=== PATIENT | male | born 1975 | race Caucasian/White ===

== ENCOUNTER 2019-08-08 18:51 | Emergency (ER) | payer BC, SELFPAY ==
--- NOTE | 2019-08-08 19:01 | ED.WOUNDLAC ---
HPI - Wound/Laceration General Chief Complaint: Wound/Laceration Stated Complaint: cut finger Time Seen by Provider: 08/08/19 19:01 Source: patient and RN notes reviewed Mode of arrival: ambulatory Limitations: no limitations History of Present Illness Onset (ago): minute(s) (20) Extremity Location: Left: hand (5th finger) Place: home Patient tetanus UTD: No Context: accidental Associated symptoms: none Treatments prior to arrival: bandage Related Data Home Medications Medication Instructions Recorded Confirmed No Home Medications 08/08/19 08/08/19 Allergies Allergy/AdvReac Type Severity Reaction Status Date / Time No Known Allergies Allergy Verified 08/08/19 19:14 Review of Systems Review of Systems: All systems reviewed & are unremarkable except as noted in HPI and below PMFSH Past Medical History Medical History (Updated 08/08/19 @ 19:25 by Luis Newman MD) No active medical problems Surgical History Surgical History (Updated 08/08/19 @ 19:22 by Luis Newman MD) No history of previous surgery Social History Social History (Updated 08/08/19 @ 19:22 by Luis Newman MD) Smoking status: Former smoker Tobacco type: smokeless tobacco Alcohol intake: current Drinks per week: 2 Substance use: never Living arrangements: with family Exam Const: General: healthy appearing, no acute distress and alert Nutritional Appearance: well nourished Orientation/consciousness: patient oriented x3 HENMT: Head: normal to inspection Ears: external ears normal General nose exam: Normal external nose present Face and sinus: normal facial exam Mouth: Yes lip normal Eyes: Conjunctivae: conjunctivae normal Pupils: Equal, round and reactive pupils present EOM: EOMs intact bilaterally Neck: Neck: normal visual inspection Resp: Effort & Inspection: normal respiratory effort Auscultation: clear to auscultation bilaterally Cardio: Rate: regular rate Rhythm: regular rhythm GI: GI Palp: Yes Soft to palpation and No Tenderness to palpation present (GI) Auscultation: normal bowel sounds Back/Spine/Pelvis: Cervical Spine: cervical ROM normal Thoracic/Lumbar Spine: thoraco-lumbar ROM normal Skin: General skin exam: normal color Rashes: no rashes Wounds: wounds noted laceration left dorsal 5th finger Neuro: General: patient oriented x3, moves all extremities and no focal motor deficits Speech: normal speech Gait exam (Neuro): Normal gait present Extrem: General: normal to inspection Psych: Appearance: grossly normal and well kempt Mental Status: mental status grossly normal Affect: normal affect Attitude: cooperative Thought content: Yes Normal thought content present Course Vital Signs Vital signs: Vital Signs Temperature 36.8 C 08/08/19 19:15 Pulse Rate 77 08/08/19 19:15 Respiratory Rate 16 08/08/19 19:15 Blood Pressure 154/89 H 08/08/19 19:15 Pulse Oximetry 97 08/08/19 19:15 Temperature 36.8 C 08/08/19 19:15 Pulse Rate 77 08/08/19 19:15 Respiratory Rate 16 08/08/19 19:15 Blood Pressure 154/89 H 08/08/19 19:15 Pulse Oximetry 97 08/08/19 19:15 Procedures Laceration Laceration 1: Date: 08/08/19 Time: 19:10 Site: hand (5th finger dorasl over middle phalanx) Side (If applicable): left Description: linear Depth: simple, single layer Local Anesthetic: lidocaine 1% Amount of anesthesia used (mL): 3 Pre-repair: wound explored and irrigated ====== Skin Level ====== Skin layer closed with: nylon Size (cm): 4-0 Number of sutures: 7 Technique: running ====== Subcutaneous Layer ====== ====== Muscle Layer ====== ====== Tendon Layer ====== Discharge Plan Discharge Clinical Impression: Laceration Patient Disposition: Home, Self-Care Condition: Stable Instructions: Laceration (ED) Additional Instructions: use Tylenol
[2019-08-08] MEDS: TETANUS,DIPHTHERIA,AC PERTUSSIS ADULT 0.5 ML (ADACEL) (19:11)
[2019-08-08 19:15] VITALS: BP 154/89; PULSE 77; RESP 16; TEMP 36.8; O2SAT 97
[2019-08-08 19:35] VITALS: RESP 16
== END 2019-08-08 19:35 | disposition home or self-care (01) ==
PROVIDERS: Emergency Provider Emergency Medicine; PCP Internal Medicine
DX: S61.217A Laceration without foreign body of left little finger without damage to nail, initial encounter (principal); W45.8XXA Other foreign body or object entering through skin, initial encounter
CPT/HCPCS: 12001; 90471; 90715; 99282

== ENCOUNTER 2019-09-26 07:59 | Outpatient (CLI) | payer BC, SELFPAY ==
--- NOTE | ~2019-09-26 | CT_ITS ---
EXAMINATION: CT soft tissue neck w con DATE: 09/26/2019 08:37 INDICATION: Right neck mass. TECHNIQUE: Computed tomography (CT) of the neck was performed with 75 mL Omnipaque-350 intravenous co ntrast. Automated exposure control and iterative reconstruction technique were employed. The dose-shivani gth product was 568.85 mGy-cm. COMPARISON: Neck CT 08/30/2017 FINDINGS: There are no pathologically enlarged lymph nodes. There is no visible plaque in the proxima l internal carotid arteries. There is a punctate calcification in right palatine tonsil. There is mil d mucosal thickening in the maxillary sinuses. There is mild cervical spondylosis. IMPRESSION: 1. No abnormal mass or lymphadenopathy. Reviewed, dictated and finalized at location A.
== END 2019-09-26 08:00 | disposition home or self-care (01) ==
LOC: CHSIMG 08:01
PROVIDERS: PCP Internal Medicine; Visit Provider Internal Medicine
DX: J31.2 Chronic pharyngitis (principal); L04.0 Acute lymphadenitis of face, head and neck
CPT/HCPCS: 70491; Q9965

== ENCOUNTER 2021-04-15 11:37 | Outpatient (CLI) | payer BC, SELFPAY ==
--- NOTE | ~2021-04-15 | XR_ITS ---
EXAMINATION: XR_CERV2-3V_CR EXAM DATE: 04/15/2021 12:08 INDICATION: No known recent injury provided at this time. Pain of the cervical spine. TECHNIQUE: Cervical spine frontal, lateral, lateral swimmers, and open-mouth odontoid projections. There is no prior study for comparison. FINDINGS: There is mild to moderate disc disease at C5-6 and 6-7. The vertebral body and disc height s are otherwise well maintained. The vertebral bodies are aligned in the AP dimension. The odontoid p rocess is intact. The lateral masses of C1 line up with C2. Prevertebral soft tissue and pre-dens sp gisele are within normal limits. Evidence of mild cervical arthropathy. Lung apices clear. IMPRESSION: 1. Mild to moderate lower cervical disc disease. 2. Mild arthropathy. Reviewed, dictated and finalized at location A. COMMUNICATIONS TECHNICIAN
--- NOTE | ~2021-04-15 | XR_ITS ---
EXAMINATION: XR shoulder LT min 2V EXAM DATE: 04/15/2021 12:08 INDICATION: No known recent injury provided at this time. Pain of the left shoulder. TECHNIQUE: The following left shoulder projections obtained: frontal projection with internal rotatio n, frontal projection with external rotation, Grashey, and scapular Y view (4+ views). There is no p rior study for comparison. FINDINGS: No evidence of left shoulder rotator cuff calcific tendinosis. There is mild glenohumera l joint, mild acromioclavicular joint primary osteoarthritis. There are no acute fractures or disloca tions identified. There is no subcutaneous gas. The soft tissue is unremarkable. There are no rad iopaque foreign bodies. IMPRESSION: Mild left shoulder osteoarthritis. Reviewed, dictated and finalized at location A. YTICS SENIOR MANAGER
[2021-04-15 11:49] LABS: Basophils Absolute Auto 0.04 K/mm3 (0.00-0.10); Basophils Percent Auto 0.7 % (0.0-1.0); Eosinophils Absolute Auto 0.07 K/mm3 (0.02-0.50); Eosinophils Percent Auto 1.2 % (1.0-6.0); Hematocrit 46.1 % (40.0-54.0); Hemoglobin 15.4 g/dL (14.0-18.0); Immature Granulocyte Absolute 0.01 K/mm3 (0.00-0.00); Immature Granulocyte Percent A 0.2 % (0.0-0.0); Lymphocytes Absolute Auto 1.95 K/mm3 (1.10-4.50); Lymphocytes Percent Auto 32.2 % (18.0-42.0); Mean Corpuscular HGB Conc 33.4 g/dL (32.0-36.0); Mean Corpuscular Hemoglobin 30.5 pg (27.0-31.0); Mean Corpuscular Volume 91.3 fL (78.0-102.0); Monocytes Absolute Auto 0.46 K/mm3 (0.10-0.90); Monocytes Percent Auto 7.6 % (2.0-11.0); Neutrophils Absolute Auto 3.5 K/mm3 (1.7-7.2); Neutrophils Percent Auto 58.1 % (50.0-70.0); Platelet Count Result 234 K/mm3 (150-420); Red Blood Count 5.05 M/mm3 (4.70-6.10); Red Cell Distribution Width 12.4 % (11.6-14.4); White Blood Count 6.1 K/mm3 (4.8-10.8)
[2021-04-15 11:55] LABS: Add Urine Microscopic? YES; Appearance Urine Clear (Clear); Bilirubin Urine Negative (Negative); Blood Urine Negative (Negative); Color Urine Yellow (Yellow); Glucose Urine UA Negative (Negative); Ketones Urine Negative (Negative); Leukocyte Esterase Ur Negative (Negative); Nitrate Urine Negative (Negative); Protein Urine Trace (Negative); Specific Grav Ur 1.025 (1.010-1.020); Urobilinogen Urine 0.2 mg/dL (0.2-1.0)
[2021-04-15 11:58] LABS: RBC Urine None seen /hpf (0-2); WBC Urine None seen /hpf (0-3)
[2021-04-15 11:59] LABS: Bacteria Urine Trace /hpf; Mucus Urine Moderate /lpf
[2021-04-15 12:34] LABS: Alanine Aminotransferase 49 U/L (16-63); Alkaline Phosphatase 104 U/L (46-116); Anion Gap 8 mmol/L (8-16); Aspartate Amino Transferase 18 U/L (15-37); Bilirubin,Total 0.7 mg/dL (0.00-1.00); Blood Urea Nitrogen 15 mg/dL (7-18); Carbon Dioxide 28 mmol/L (21-32); Chloride 105 mmol/L (98-108); Cholesterol 143 mg/dL (0-200); Estimated Glomerular Filt Rate > 60; Glucose 98 mg/dL (70-99); HDL Direct 38 mg/dL (40-60); LDL Cholesterol Calculated 74 mg/dL (<130); Osmolality Calculated 292 mOsm/kg (285-295); Potassium 4.2 mmol/L (3.5-5.1); Sodium 141 mmol/L (136-145); Total Protein 7.3 g/dL (6.4-8.2); Triglycerides 155 mg/dL (0-150)
== END 2021-04-15 11:38 | disposition home or self-care (01) ==
LOC: CHSLAB 11:40
PROVIDERS: PCP Internal Medicine; Visit Provider Internal Medicine
DX: Z00.00 Encounter for general adult medical examination without abnormal findings (principal); M54.2 Cervicalgia; M25.512 Pain in left shoulder
CPT/HCPCS: 36415; 72040; 73030; 80053; 80061; 81001; 85025

== ENCOUNTER 2021-04-22 16:54 | Outpatient (RCR) | payer BC, SELFPAY ==
--- NOTE | 2021-04-25 06:49 | PTOPEVAL ---
Thank you for referring Trent Valdes Ems to [facility] [place] The patient is scheduled to be seen for therapy? ____x/week for ___ weeks. Please review, sign, date and return this plan of care GANESH. I agree with and certify that the following plan of care is medically necessary. Referring Physician Date Admitting Provider: Attending Provider: Layton Oliva MD Referring Provider: *PT Outpatient Evaluation Start: 04/22/21 16:19 Freq: Status: Active Protocol: Document 04/22/21 16:50 ACR (Rec: 04/22/21 17:42 ACR [id number]) Therapy Assessment Status Assessment Status Assessment Status Evaluation Evaluation Information Problem Diagnosis 04/04/21 Subjective Information Patient states that he has Query Text:As Reported By Patient/ been noticing off and on pain Family in the shoulder and neck along with the chest. He states the pain is really dull and uncomfortable. He states that he is able to do everything, but he has a lot of stiffness in the morning where it is painful. Some week he has the pain and others it doesn't feel well. 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 He states that when he is stiff it is sometimes difficult to take a deep breath. Patient states that his goal for therapy is to decrease the amount of times the pain occurs. Prior Level of Function Activity Level (Last 3 Months) Occupation fork lift truck operator Hand Dominance Right Activity of Daily Living Ability Independent Indoor/Home Mobility Independent Community Mobility Independent Stairs Ability Independent Functional Cognition (Planning, Shopping Independent , Taking Medications) Cooking Yes Cleaning Yes Laundry Yes Shopping Yes Driving Yes Pain Assessment Timing of Pain Assessment Timing of Pain Assessment Assessment Pain Scale Pain Scale Used Numeric (1 - 10) Self Report Pain Assess
--- NOTE | 2021-05-24 17:22 | PTOPEVAL ---
Thank you for referring Trent Valdes Ems to [facility].? The patient is scheduled to be seen for therapy? ____x/week for ___ weeks. Please review, sign, date and return this plan of care GANESH. I agree with and certify that the following plan of care is medically necessary. Referring Physician Date Admitting Provider: Attending Provider: Layton Oliva MD Referring Provider: *PT Outpatient Evaluation Start: 04/22/21 16:19 Freq: Status: Active Protocol: Document 05/24/21 16:50 ACR (Rec: 05/24/21 17:22 ACR [id number]) Therapy Assessment Status Assessment Status Assessment Status Discharge Evaluation Information Problem Diagnosis L shoulder and neck pain Onset 04/04/21 Subjective Information Patient states that since Query Text:As Reported By Patient/ beginning therapy he has been Family feeling like it has helped him a little bit. Patient states that he still has the discomfort, but not as often. Patient states that taking deep breath he still has pain behind the shoulder blade. He states he is doing a lot better. Pain Assessment Timing of Pain Assessment Timing of Pain Assessment Assessment Self Report Self Report Pain Level 0 Pain Score Pain Score 0: Self Report Cervical and Lumbar ROM Cervical ROM Cervical Flexion (0-60) 58 Query Text:Active in Degrees Cervical Extension (0-70) 55 Query Text:Active in Degrees Cervical Rotation Right (0-90) 72 Query Text:Active in Degrees Cervical Rotation Left (0-90) 80 Query Text:Active in Degrees Upper Extremity Range of Motion Scapular/ Shoulder Range of Motion Right Shoulder Flexion - Active 174 Shoulder Abduction - Active 180 Left Shoulder Flexion - Active 168 Shoulder Abduction - Active 179 Upper Extremity Muscle Strength Testing Scapular/Shoulder Right Shoulder Elevation - Upper Trapezius 5 Normal Scapular Retraction - Rhomboid 5 Normal Scapular Retraction - Middle Trapezius 5 Normal Scapular Retraction - Lower Trapezius 5 Normal Shoulder Flexion Strength 5 Normal Shoulder Abduction Strength 5 Normal Shoulder Medial Rotation Strength 5 Normal Shoulder Lateral Rotation Strength 5 Normal Left Shoulder Elevation - Upper Trapezius 5 Normal Scapular Retraction - Rhomboid 5 Normal Scapular Retraction - Middle Trapezius 5 Normal Scapular Retraction - Lower Trapezius 5 Normal Shoulder Flexion Strength 5 Normal Shoulder Abduction Strength 5 Normal Shoulder Medial Rotation Strength
== END 2021-05-24 14:02 | disposition home or self-care (01) ==
LOC: CHSPT 16:54
PROVIDERS: PCP Internal Medicine; Visit Provider Internal Medicine
DX: M25.512 Pain in left shoulder (principal); M54.2 Cervicalgia
CPT/HCPCS: 97110; 97140; 97161

== ENCOUNTER 2022-04-24 14:36 | Outpatient (RCR) | payer OTHER, SELFPAY ==
--- NOTE | 2022-04-27 08:57 | BUOTOPEVAL ---
Assessment and note entered by Mary [place] OT Evaluation Information Assessment Status Evaluation Diagnosis R elbow pain Onset 04/03/2022 Subjective Information The patient reports numbness and tingling in distal arm and hand when sleeping but reports that that has happened before injury. The patient reports a shot of cortizone in posterior elbow and has been experiencing decreased pain in that area for now. Reported Pain Level Pain Score 0: Self Report Pain Score 2: Self Report Assessment OT Clinical Summary The patient is a 47 year old male who was referred to outpatient OT due to R elbow pain. 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 The patient previously demonstrated no pain during activity, WFL AROM and WFL strength of elbow and hand in R UE. The patient now demonstrates 5/10 pain with activity, diminished elbow AROM and strength, fair minus human resource professional/pinch strength which affect the patient's ability to perform self care tasks and work activities needed to return to prior level of independence. Plan of Care Interventions Therapeutic Exercise,Manual Therapy,Neuro Re- education,Therapeutic Activities,Hot Pack/Cold Pack,Electrical Stimulation,Self-Care/Home Management,Ultrasound OT Services Indicated Yes Treatment Frequency and 3x/week for 4 weeks. Duration These treatments will address the objective and functional deficits as defined above. The patient will be advanced safely and appropriately in order for the patient to progress towards his/her prior level of function. Additional exercises will be introduced and as well as a comprehensive home exercise program upon discharge, if needed, ?to ensure carryover of functional gains achieved in the clinic. This treatment plan has been reviewed and agreement upon by the patient.
--- NOTE | 2022-05-15 15:51 | OTOPPROG ---
Assessment and note entered by Mary [place] OT Evaluation Information Assessment Status Progress Assessment OT Clinical Summary The patient demonstrates signifcant progress with R UE elbow pain, AROM, strength, and machinery erector/pinch strength which affect the patient's ability to perform self care and work tasks with increased independence. The patient continues to demonstrate sharp pain in posterior elbow and forearm during pronation tasks which affect his ability to lift heavy objects at work. The patient demonstrates popping/grinding in elbow and wrist during supination/pronation motion which affect progress with strength of R UE. Patient demonstrates 4 to 4 -/5 muscle strength of R elbow flexion/extension with minimal pain at this time. The patient continues to demonstrate progress toward goals with reasonable expectation for improvement, the patient to continue with OT 2x/week for 10 visits to improve pain symptoms and increase strength. Plan of Care Interventions Therapeutic Exercise,Manual Therapy,Therapeutic Activities,Hot Pack/Cold Pack,Electrical Stimulation,Ultrasound OT Services Indicated Yes Treatment Frequency and 2x/week for 10 visits. Duration These treatments will address the objective and functional deficits as defined above. The patient will be advanced safely and appropriately in order for the patient to progress towards his/her prior level of function. Additional exercises will be introduced and as well as a comprehensive home exercise program upon discharge, if needed, ?to ensure carryover of functional gains achieved in the clinic. This treatment plan has been reviewed and agreement upon by the patient.
== END 2022-05-19 19:00 | disposition home or self-care (01) ==
LOC: CHSOT 14:36
PROVIDERS: Visit Provider Orthopaedic Surgery Hand Surgery
DX: M25.521 Pain in right elbow (principal)
CPT/HCPCS: 97014; 97110; 97140; 97165; 97530; G0283

== ENCOUNTER 2022-05-27 07:23 | Outpatient (CLI) | payer OTHER, SELFPAY | END 2022-05-27 07:24 | disposition home or self-care (01) | PROVIDERS: PCP Internal Medicine; Visit Provider Orthopaedic Surgery Hand Surgery | DX: M25.521 Pain in right elbow (principal) | CPT/HCPCS: 99199 ==

== ENCOUNTER 2022-07-05 18:23 | Outpatient (CLI) | payer BC, SELFPAY ==
--- NOTE | ~2022-07-05 | XR_ITS ---
EXAMINATION: XR chest 2V Exam Date/Time: 07/05/2022 18:38 CDT HISTORY: COUGH, SOB, WHEEZING 1.5 WEEKS. Comparison: 03/12/2018. RESULT: Lines, tubes, and devices: None. Lungs and pleura: Mild diffuse reticulonodular opacities and cuffing. Cardiomediastinal silhouette: Stable. Other: No acute osseous or upper abdominal finding. IMPRESSION: Pulmonary opacities may represent mild bronchiolitis, as can be seen with atypical infection, asthma, aspiration, and small airways disease. Reviewed, dictated and finalized at location K. IMPRESSION: Pulmonary opacities may represent mild bronchiolitis, as can be seen with atypi jae infection, asthma, aspiration, and small airways disease.
== END 2022-07-05 18:24 | disposition home or self-care (01) ==
LOC: CHSIMG 18:26
PROVIDERS: PCP Internal Medicine; Visit Provider Internal Medicine
DX: R05.9 Cough, unspecified (principal); R91.8 Other nonspecific abnormal finding of lung field
CPT/HCPCS: 71046

== ENCOUNTER 2023-01-10 00:27 | Day surgery (SDC) | payer BC, SELFPAY ==
[2022-12-28 13:12] VITALS: BMI 34.7
--- NOTE | 2023-01-09 17:02 | PM.HPGS ---
History of Present Illness History of Present Illness Consent: Risks, benefits, and alternatives have been discussed and questions answered. Patient agrees to proceed with procedure. Chief complaint: neoplasm screening Narrative: Trent Florence is a 47 year old male who is referred for colon cancer screening. Review of Systems Review of Systems: All systems reviewed & are unremarkable except as noted in HPI and below PMFSH Past Medical History Medical History No active medical problems Surgical History Surgical History No history of previous surgery Social History Social History Years smoked: 20 Smoking status: Former smoker Tobacco type: smokeless tobacco Smokeless tobacco user: chewing tobacco and other Additional smoking assessment comments: BHANU-NICOTINE POUCHES EVERY EVENING, QUIT CHEWING TOBACCO Alcohol intake: current Drinks per week: 2 Substance use: never Substance use type: does not use Living arrangements: with family Spiritual care concerns: No Meds Home Medications and Allergies Home Medications Medication Instructions Recorded Confirmed Type fluticasone propionate 50 1 mcg intranasal BID PRN ALLERGIES 12/28/22 01/10/23 History mcg/actuation nasal spray,suspension lisinopril 20 1 tablet PO DAILY 12/28/22 01/10/23 History mg-hydrochlorothiazide 12.5 mg tablet melatonin 5 mg tablet 5 mg PO HS 12/28/22 01/10/23 History Allergies Allergy/AdvReac Type Severity Reaction Status Date / Time No Known Allergies Allergy Verified 01/10/23 08:58 Exam Resp: Auscultation: clear to auscultation bilaterally Cardio: Rate: regular rate Rhythm: regular rhythm GI: GI Palp: Yes Soft to palpation and No Tenderness to palpation present (GI) Assessment and Plan Assessment and plan (1) Colon cancer screening: Code(s): Z12.11 - Encounter for screening for malignant neoplasm of colon Status: Acute Assessment and Plan: Colonoscopy with possible biopsy or polypectomy or cautery or injection of substances.
[2023-01-10 08:47] VITALS: BP 123/84; PULSE 73; RESP 18; TEMP 36.1; O2SAT 98; BMI 33.5
[2023-01-10] MEDS: LACTATED RINGERS 1,000 ML 150 ML IV CONT (09:11)
--- NOTE | 2023-01-10 10:29 | WPDANESEPPF ---
Anes - Initial Pre Proc Eval Procedure: Operation Date: 01/10/23 10:15 Proposed Procedures p Screening Colonoscopy - Yair Castellanos MD Date/Time: 01/10/23 10:29 Surgeon: Yair Castellanos MD Pre Op Diagnosis: neoplasm screening Patient Data Age: 47 Gender: M Height: 1.8 m Weight: 109 kg Last Vital Signs Temp 97.0 F L 01/10/23 08:47 Pulse 73 01/10/23 08:47 Resp 18 01/10/23 08:47 BP 123/84 01/10/23 08:47 Pulse Ox 98 01/10/23 08:47 O2 Del Method Room Air 01/10/23 08:47 Allergies Allergy/AdvReac Type Severity Reaction Status Date / Time No Known Allergies Allergy Verified 01/10/23 08:58 Home Medications Medication Instructions Recorded Confirmed Type fluticasone propionate 50 1 mcg intranasal BID PRN ALLERGIES 12/28/22 01/10/23 History mcg/actuation nasal spray,suspension lisinopril 20 1 tablet PO DAILY 12/28/22 01/10/23 History mg-hydrochlorothiazide 12.5 mg tablet melatonin 5 mg tablet 5 mg PO HS 12/28/22 01/10/23 History Patient hx anesthesia problems: none Family hx anesthesia problems: none Results Review: All pre-operative results and documents have been reviewed as part of the pre-operative evaluation. [facility] Past Medical History Medical History No active medical problems Surgical History Surgical History No history of previous surgery Social History Social History Years smoked: 20 Smoking status: Former smoker Tobacco type: smokeless tobacco Smokeless tobacco user: chewing tobacco and other Additional smoking assessment comments: BHANU-NICOTINE POUCHES EVERY EVENING, QUIT CHEWING TOBACCO Alcohol intake: current Drinks per week: 2 Substance use: never Substance use type: does not use Living arrangements: with family Spiritual care concerns: No Anes - Eval Final PreProcedure Day of Procedure 01/10/23 10:29 Patient weight: obese Heart: regular rate and rhythm Lungs: clear to auscultation Airway: Mallampati scale class II Neurological: alert and oriented Last oral intake: >/= 8 hours ASA classification: II Emergent: no Anesthetic plan: proceed Anesthesia type and monitoring: general GIVS and standard monitoring Results Review: All pre-operative results and documents have been reviewed as part of the pre-operative evaluation. Informed Consent: The patient's anesthetic plan and its attendant risks and benefits were discussed with the patient/family/POA. Questions were solicited and answers provided to the satisfaction of the patient/family/POA.
[2023-01-10 10:33] VITALS: BP 128/66; PULSE 76; RESP 22; O2SAT 98
[2023-01-10 10:43] VITALS: BP 110/71; PULSE 63; RESP 17; O2SAT 98
[2023-01-10 10:53] VITALS: BP 118/73; PULSE 68; RESP 15; O2SAT 99
== END 2023-01-10 10:58 | disposition home or self-care (01) ==
PROVIDERS: PCP Internal Medicine; Visit Provider Internal Medicine Gastroenterology
PROC: 0DJD8ZZ Inspection of Lower Intestinal Tract, Via Natural or Artificial Opening Endoscopic (ICD-10-PCS; CPT 45378; principal; 2023-01-10 10:15)
DX: Z12.11 Encounter for screening for malignant neoplasm of colon (principal); K62.1 Rectal polyp; K64.8 Other hemorrhoids; F17.290 Nicotine dependence, other tobacco product, uncomplicated; E66.9 Obesity, unspecified; Z68.33 Body mass index [BMI] 33.0-33.9, adult
CPT/HCPCS: 45385; 88305; J2704; J7120

== ENCOUNTER 2024-02-13 13:40 | Outpatient (RCR) | payer BC, SELFPAY ==
--- NOTE | 2024-02-13 14:39 | PTOPEVAL1 ---
Assessment and note entered by Charanjit Carter Evaluation Information Assessment Status Evaluation ICD-10 Condition Codes (PT) Pain in low back M54.50 Onset 02/12/24 Subjective Information Pt. reports that he developed low back pain suddenly after driving to [place]. He describes pain in the area of the right SI joint. He states that he had x-ray, and was told acute lumbar myofascial strain. He reports that he has improved since the initial pain. He is currently taking a muscle relaxer and steroid for pain. He is still taking both daily. He reports that pain is worsened with sitting. He reports off and on slight back pain in the past, but nothing that required seeing the doctor. He reports that he is on his feet 75% of the day with work. He has had mild cramping in the right leg, but rare, and pain is mostly localized to the right side of the low back. He reports that he is sleeping well at night. He states that his goal is to reduce his low back pain. Reported Pain Level Pain Score 5: Self Report Assessment PT Clinical Summary Pt. is a 48 year old male who enters the clinic with low back pain. He presents with weakness of the right abductors and extensors at the hip, pain with palpation and sitting, impaired flexibility, and impaired postural awareness. Continued skilled PT is indicated in order to improve these area to allow for improved comfort with IADL performance. Plan of Care Interventions Electrical Stimulation,Hot Pack/Cold Pack,Manual Therapy,Mechanical Traction,Neuro Re-education, Patient/Caregiver Educati,Therapeutic Activities, Therapeutic Exercise PT Services Indicated Yes Treatment Frequency and 2x/week x 8 visits Duration These treatments will address the objective and functional deficits as defined above. The patient will be advanced safely and appropriately in order for the patient to progress towards his/her prior level of function. Additional exercises will be introduced and as well as a comprehensive home exercise program upon discharge, if needed, ?to ensure carryover of functional gains achieved in the clinic. This treatment plan has been reviewed and agreement upon by the patient.
--- NOTE | 2024-02-13 14:40 | OPREHPOC ---
Outpatient Therapy Plan of Care This is a Multidisciplinary Plan of Care that may contain components documented by all disciplines (PT, OT, and ST.) PT Problem 1 PT Problem #1 Knowledge Deficit PT Goal 1 Goal / Goal Update Pt. will be independent with a HEP addressing strength and mobility. Target Visit 2 PT Problem 2 PT Problem #2 Pain PT Goal 1 Goal / Goal Update Pt. will report pain levels at 2/10 at worst with all prolonged sitting and standing activities. Target Visit 8 PT Problem 3 PT Problem #3 Impaired Strength PT Goal 1 Goal / Goal Update Pt. will present with 5/5 right hip extensor and abductor strength. Pt. will present with good lower and oblique abdominal strength Target Visit 8 PT Problem 4 PT Problem #4 Impaired Functional Mobil PT Goal 1 Goal / Goal Update Pt. will report being able to sit for duration of 1 hour with pain levels at 2/10 at worst Pt. will have 20% limitation or less with the LEFS Pt. will be able to safely lift 25# from floor to waist with safe mechanics and no pain for 10 reps. Target Visit 8
--- NOTE | 2024-03-11 17:00 | OPREHPOC ---
Outpatient Therapy Plan of Care This is a Multidisciplinary Plan of Care that may contain components documented by all disciplines (PT, OT, and ST.) PT Problem 1 PT Problem #1 Knowledge Deficit PT Goal 1 Goal / Goal Update Pt. will be independent with a HEP addressing strength and mobility. Target Visit 2 Progress Met PT Problem 2 PT Problem #2 Pain PT Goal 1 Goal / Goal Update Pt. will report pain levels at 2/10 at worst with all prolonged sitting and standing activities. Target Visit 8 Progress Met PT Problem 3 PT Problem #3 Impaired Strength PT Goal 1 Goal / Goal Update Pt. will present with 5/5 right hip extensor and abductor strength. Pt. will present with good lower and oblique abdominal strength Target Visit 8 Progress Met PT Problem 4 PT Problem #4 Impaired Functional Mobil PT Goal 1 Goal / Goal Update Pt. will report being able to sit for duration of 1 hour with pain levels at 2/10 at worst Pt. will have 20% limitation or less with the LEFS Pt. will be able to safely lift 25# from floor to waist with safe mechanics and no pain for 10 reps. Target Visit 8 Progress Met
--- NOTE | 2024-03-11 17:01 | PTOPDC ---
Assessment and note entered by JT File, PT Evaluation Information Assessment Status Discharge ICD-10 Condition Codes (PT) Pain in low back M54.50 Onset 02/12/24 Subjective Information patient reports he feels great today. he reports he has little to no pain any longer in the lower back. he reports at worst it may have touched a 2/ 10 on sunday with increased activities around the home. Reported Pain Level Pain Score 1: Self Report Assessment PT Clinical Summary mr. [email or web address] presents to skilled PT for his 49th skilled therapy visit today. he has achieved all goals for skilled PT. as of this date, he will DC skilled PT and continue with HEP independent at home. Plan of Care PT Services Indicated Yes
== END 2024-03-11 17:12 | disposition home or self-care (01) ==
LOC: CHSPT 13:40
PROVIDERS: PCP Internal Medicine; Visit Provider Internal Medicine
DX: M54.50 Low back pain, unspecified (principal); S33.6XXD Sprain of sacroiliac joint, subsequent encounter
CPT/HCPCS: 97014; 97110; 97140; 97161; G0283

== ENCOUNTER 2024-03-15 08:39 | Outpatient (CLI) | payer BC, SELFPAY ==
[2024-03-15 09:31] LABS: Basophils Absolute Auto 0.03 K/mm3 (0.00-0.10); Basophils Percent Auto 0.4 % (0.0-1.0); Eosinophils Absolute Auto 0.07 K/mm3 (0.02-0.50); Hematocrit 42.6 % (40.0-54.0); Hemoglobin 14.6 g/dL (14.0-18.0); Immature Granulocyte Absolute 0.03 K/mm3 (0.00-0.00); Immature Granulocyte Percent A 0.4 % (0.0-0.0); Lymphocytes Absolute Auto 2.25 K/mm3 (1.10-4.50); Lymphocytes Percent Auto 32.8 % (18.0-42.0); Mean Corpuscular HGB Conc 34.3 g/dL (32-36); Mean Corpuscular Hemoglobin 30.4 pg (27.0-31.0); Mean Corpuscular Volume 88.6 fL (78.0-102.0); Mean Platelet Volume 9.9 fl (8.7-11.0); Monocytes Absolute Auto 0.53 K/mm3 (0.10-0.90); Monocytes Percent Auto 7.7 % (2.0-11.0); Neutrophils Absolute Auto 3.94 K/mm3 (1.70-7.20); Neutrophils Percent Auto 57.7 % (50.0-70.0); Platelet Count Result 249 K/mm3 (150-420); Red Blood Count 4.81 M/mm3 (4.70-6.10); Red Cell Distribution Width 12.9 % (11.6-14.4); White Blood Count 6.9 K/mm3 (4.8-10.8)
[2024-03-15 09:42] LABS: Add Urine Microscopic? YES; Bilirubin Urine Negative (Negative); Blood Urine Negative (Negative); Color Urine Yellow (Yellow); Glucose Urine UA Negative (Negative); Ketones Urine Trace (Negative); Leukocyte Esterase Ur Negative LEU/UL (Negative); Nitrate Urine Positive (Negative); Protein Urine 1+ (Negative); Specific Grav Ur >= 1.030 (1.010-1.020)
[2024-03-15 09:44] LABS: Appearance Urine Turbid (Clear)
[2024-03-15 09:49] LABS: Amorphous Sediment Urine Heavy; Bacteria Urine 1+ /hpf; RBC Urine None seen /hpf (0-2); Squamous Epithelial Cell Urine Rare /hpf (Few); WBC Urine None seen /hpf (0-3)
[2024-03-15 09:53] LABS: Alanine Aminotransferase 52 U/L (16-63); Alkaline Phosphatase 86 U/L (46-116); Aspartate Amino Transferase 17 U/L (15-37); Bilirubin,Total 0.6 mg/dL (0.00-1.00); Blood Urea Nitrogen 16 mg/dL (7-18); Calcium 9.3 mg/dL (8.5-10.1); Chloride 104 mmol/L (98-108); Cholesterol 154 mg/dL (0-200); Estimated Glomerular Filt Rate > 60; Glucose 95 mg/dL (70-99); HDL Direct 46 mg/dL (40-60); LDL Cholesterol Calculated 94 mg/dL (<130); Osmolality Calculated 295 mOsm/kg (285-295); Potassium 4.2 mmol/L (3.5-5.1); Sodium 142 mmol/L (136-145); Total Protein 7.2 g/dL (6.4-8.2); Triglycerides 72 mg/dL (0-150)
[2024-03-15 09:57] LABS: Anion Gap 10 mmol/L (4-12); Carbon Dioxide 28 mmol/L (21-32)
[2024-03-15 10:06] LABS: Hemoglobin A1C 5.5 % (<5.7)
== END 2024-03-15 08:40 | disposition home or self-care (01) ==
LOC: CHSLAB 08:42
PROVIDERS: PCP Internal Medicine; Visit Provider Internal Medicine
DX: Z00.00 Encounter for general adult medical examination without abnormal findings (principal); N39.0 Urinary tract infection, site not specified; I10 Essential (primary) hypertension
CPT/HCPCS: 36415; 80053; 80061; 81001; 83036; 85025; 87086